=== PATIENT | male | born 1955 | race Caucasian/White ===

== ENCOUNTER 2018-11-10 14:24 | Outpatient (CLI) | payer OTHER ==
--- NOTE | 2018-11-10 15:18 | CT ---
LOW DOSE CT SCAN OF CHEST WITHOUT CONTRAST FOR LUNG CANCER SCREENING: Date: 11/10/18 HISTORY: Nicotine dependence. Current smoker with 30 year history of smoking about 1 pack per week. FINDINGS: There is a solid peripheral nodule in the right upper lobe measuring 8.0 x 8.0 mm. Also noted is a pe rifissural 4 mm nodule in the right lower lobe arising from the major fissure. There is scarring in the lung bases. No aneurysmal dilatation of the thoracic aorta is seen. There ar e degenerative changes in the spine. No pleural or pericardial effusions are identified. IMPRESSION: Lung-RADS Category 4A: Suspicious finding for which additional diagnostic testing is recommended. RECOMMENDATIONS; Further evaluation with PET scan is recommended. CODE T. CODE LN. POS: SHAINA
== END 2018-11-10 14:25 | disposition home or self-care (01) ==
LOC: CT 14:24
PROVIDERS: ATTEND Family Medicine
DX: Z12.2 Encounter for screening for malignant neoplasm of respiratory organs (principal); Z00.00 Encounter for general adult medical examination without abnormal findings; F17.210 Nicotine dependence, cigarettes, uncomplicated
CPT/HCPCS: G0297

== ENCOUNTER 2018-11-23 12:38 | Outpatient (CLI) | payer OTHER ==
--- NOTE | 2018-11-23 15:21 | PET ---
Radionucleotide PET scan with CT attenuation correction HISTORY: Lung nodule. FINDINGS: Physiologic uptake of radiotracer is apparent throughout the enteric system and along the u rinary tract. The small nodule seen at the lateral aspect of the right upper lobe on recent chest screening exam is again visualized. Maximum SUV 0.9. The tiny nodule within the right lower lobe hilum and pleural fissure is visualized. Maximum SUV 0.6. Overall, no areas of abnormal hypermetabolic activity are apparent. Nondiagnostic CT attenuation correction images show a healing fracture at the lateral margin of left rib the mid diverticula arise from the colon without adjacent inflammation. IMPRESSION: Small right lung nodules do not exhibit hypermetabolic activity. Please consider CT chest in 6 months to evaluate for stability. Diverticulosis. No evidence of diverticulitis.
== END 2018-11-23 12:39 | disposition home or self-care (01) ==
LOC: PET 12:38
PROVIDERS: ATTEND Family Medicine
DX: R91.8 Other nonspecific abnormal finding of lung field (principal); K57.90 Diverticulosis of intestine, part unspecified, without perforation or abscess without bleeding
CPT/HCPCS: 78815; A9552

== ENCOUNTER 2019-05-29 12:10 | Outpatient (CLI) | payer OTHER ==
--- NOTE | 2019-05-29 13:29 | CT ---
CT Chest WO Con History: Lung nodule Comparison: PET/CT November 23, 2018. CT chest November 10, 2018 Findings: 8 mm nodule right upper lobe is similar with faint internal calcifications. A perifissural nodule along the right major fissure measuring 4-5 mm is unchanged. No new suspicious pulmonary nodule. Mild paraseptal emphysema. Scar within the lingula is similar. Mild atelectasis in the lung bases. No significant adenopathy. No pericardial effusion. The upper abdomen is unremarkable. No thoracic spine compression fracture. No displaced rib fracture. Impression: 1. Size unchanged right upper lobe pulmonary nodule with faint internal calcification likely granulom a. 2. Size unchanged right perifissural nodule along the major fissure likely a perifissural node.
== END 2019-05-29 12:11 | disposition home or self-care (01) ==
LOC: BICCT 12:10
PROVIDERS: ATTEND Internal Medicine
DX: R91.8 Other nonspecific abnormal finding of lung field (principal); J98.4 Other disorders of lung
CPT/HCPCS: 71250

== ENCOUNTER 2019-12-31 13:07 | Outpatient (CLI) | payer OTHER ==
[~2019-12-31 13:07] MED LIST: Iopamidol-370 76% 500 ML 1 ML ONE
--- NOTE | 2019-12-31 15:45 | CT ---
Exam: Abdomen CT with and without contrast Pelvic CT with and without contrast HISTORY: Microscopic hematuria. COMPARISON: None TECHNIQUE: Abdomen and pelvic CT is performed with and without contrast following urogram protocol. C oronal reformatted images are submitted for interpretation FINDINGS: Lung bases: Scarring and atelectasis in the lung bases Heart: Normal heart size. No significant pericardial fluid Aorta: Normal caliber. No periaortic fat stranding Liver: Appropriate enhancement. Spleen: Appropriate enhancement Pancreas: Appropriate enhancement Adrenal glands: Symmetric enhancement Lymph nodes: No gastrohepatic, retrocrural or periportal lymphadenopathy Portal vein: Patent Gallbladder: Unremarkable Kidneys: Noncontrast: No evidence of nephrolithiasis or obstructive uropathy. Contrast: Symmetric enhancement of the kidneys. There is no evidence of an enhancing mass. Delayed: Symmetric excretion into decompressed intrauterine extra renal collecting systems. No abnorm al enhancement or filling defects. Mesentery: No mass, nephropathy, free air or free fluid Alimentary canal: Limited evaluation due to lack of oral contrast administration. No evidence of taylor l obstruction. The ileocecal junction is normal. Normal caliber appendix. Scattered fecal material in a nondistended/nondilated colon. Diverticulosis, without evidence of diverticulitis. CT PELVIS: Reproductive organs and pelvis: No acute abnormality. Normal-appearing prostate. Urinary bladder: No mucosal abnormality. No bladder calculi. Contrast opacifies the pending aspect of the urinary bladder on the delayed images, without filling defect. No lytic or blastic lesions in the osseous structures IMPRESSION: 1. No obstructive uropathy. 2. No abnormal enhancing masses kidneys or the intrarenal/extrarenal system.
== END 2019-12-31 13:08 | disposition home or self-care (01) ==
LOC: BICCT 13:07
PROVIDERS: ATTEND Urology
DX: R31.29 Other microscopic hematuria (principal); F17.200 Nicotine dependence, unspecified, uncomplicated
CPT/HCPCS: 74178; 82565; Q9967

== ENCOUNTER 2020-08-26 15:10 | Inpatient (IN) | payer OTHER ==
[~2020-08-26 15:10] MED LIST changes: +Iopamidol 370 76% 100 ML VIAL ONE; -Iopamidol-370 76% 500 ML 1 ML ONE
[2020-08-26 15:56] LABS: #Eosinphils 0.2 thou/uL (0.0-0.7); #Lymphocytes 2.8 thou/uL (1.20-3.40); #Monocytes 0.9 thou/uL (0.11-0.59); #Neutrophils 5.5 thou/uL (1.40-6.50); %Basophils 0.5 % (0.0-1.0); %Eosinophils 2.5 % (0.0-10.0); %Lymphocytes 29.4 % (21.0-51.0); %Monocytes 9.7 % (0.0-10.0); Hemoglobin 14.4 g/dL (14.0-18.0); Mean Corpuscular HGB CONC 32.8 g/dL (32.0-36.0); Mean Corpuscular Hemoglobin 30.7 pg (27.0-31.0); Mean Corpuscular Volume 93.7 fL (78.0-98.0); Mean Platelet Volume 6.8 fL (7.4-10.4); Platelet Count 181 thou/uL (130-400); RBC Distribution Width 11.6 % (11.5-14.5); Red Blood Cell (RBC) Count 4.69 mill/uL (4.70-6.10); White Blood Cell (WBC) Count 9.5 thou/uL (4.8-10.8)
[2020-08-26] MEDS ORDERED: Aspirin Chewable 81 MG TAB ONE (15:57)
[2020-08-26 16:17] LABS: ALT (SGPT) 17 U/L (8-55); AST (SGOT) 29 U/L (5-34); Alkaline Phosphatase 85 U/L (40-110); Anion Gap 15 mmol/L (10-20); BUN (Urea Nitrogen) 15 mg/dL (8.4-25.7); Bilirubin, Total 0.3 mg/dL (0.2-1.2); Calc. Creatinine Clearance 0 mL/min (70-130); Calcium 8.8 mg/dL (7.8-10.44); Carbon Dioxide 21 mmol/L (23-31); Chloride 108 mmol/L (98-107); Glucose 95 mg/dL (80-115); Potassium 3.8 mmol/L (3.5-5.1); Sodium 140 mmol/L (136-145)
[2020-08-26] MEDS ORDERED: Nitroglycerin 0.4 MG TAB 1 EACH ONE (16:34)
[2020-08-26] MEDS ORDERED: Morphine 2 MG/ML VIAL SLOW IVP PRN (18:30)
[2020-08-26] MEDS ORDERED: Nitroglycerin 0.4 MG TAB (25 Tab Bottle) SL PRN ×2 (18:30→21:34)
[2020-08-26] MEDS ORDERED: Acetaminophen 650 MG Suppository PR PRN (18:33)
[2020-08-26] MEDS ORDERED: Ondansetron ODT 4 MG TAB PO PRN (18:33)
[2020-08-26] MEDS ORDERED: Senokot S 8.6-50 MG TAB PO PRN (18:33)
[2020-08-26] MEDS ORDERED: Ondansetron PF 4 MG/2 ML Vial IVP PRN (18:33)
[2020-08-26] MEDS ORDERED: Calcium Carbonate 500 MG ChewTAB PO PRN ×2 (18:33→18:55)
[2020-08-26] MEDS ORDERED: Acetaminophen 325 MG TAB PO PRN (18:33)
[2020-08-26] MEDS ORDERED: Electrolyte Replacement Protocol FS PRN (18:45)
[2020-08-26] MEDS ORDERED: Electrolyte Replacement Protocol 1 EACH FS SCH (18:45)
[2020-08-26] MEDS ORDERED: Sodium Chloride 0.9% 1,000 ML IV SCH ×2 (18:45→18:55)
[2020-08-26] MEDS ORDERED: Mag-Al 1200 mg/1200 mg/30 ML UDCUP PO PRN (18:55)
[2020-08-26] MEDS ORDERED: ALPRAZolam 0.25 MG TAB PO PRN (18:59)
[2020-08-26] MEDS ORDERED: Nitroglycerin 50 MG/250 ML BOT 250 ML IVPB SCH (19:00)
[2020-08-26] MEDS ORDERED: Nitroglycerin 2% Ointment 1 INCH/1 GM Packet TOP SCH (19:30)
[2020-08-26] MEDS ORDERED: Communication Order-Pharmacy FS SCH (19:45)
[2020-08-26] MEDS ORDERED: Verapamil 5 MG/2 ML VIAL ONE (20:24)
[2020-08-26] MEDS ORDERED: Nitroglycerin 100MG/250ML BOT 250 ML ONE (20:24)
[2020-08-26] MEDS ORDERED: Heparin 10,000 UNITS/ 10 ML VIAL ONE (20:24)
[2020-08-26] MEDS ORDERED: Lidocaine 1% (PF) 30 ML VIAL ONE (20:24)
[2020-08-26] MEDS ORDERED: Atorvastatin Calcium 40 MG TAB PO SCH (21:00)
[2020-08-26] MEDS ORDERED: Famotidine 20 MG TAB PO SCH (21:00)
[2020-08-26] MEDS ORDERED: Sodium Chloride 0.9% 200 ML IV PRN (21:34)
[2020-08-26] MEDS ORDERED: Acetaminophen/Codeine 30-300mg Tablet PO PRN ×2 (21:34)
[2020-08-26 21:44] LABS: SARS-CoV-2 NAA Rapid Test Not Detected (NotDetected)
[2020-08-26] MEDS: Metoprolol Tartrate 25 MG TAB PO SCH (22:39)
[2020-08-26] MEDS ORDERED: Magnesium 2 GM/50 ML 2 GM in Premix Bag 1 BAG IVPB SCH (22:45)
[2020-08-27 03:43] LABS: #Basophils 0.1 thou/uL (0.0-0.2); #Eosinphils 0.3 thou/uL (0.0-0.7); #Lymphocytes 3.4 thou/uL (1.20-3.40); #Neutrophils 5.8 thou/uL (1.40-6.50); %Basophils 0.9 % (0.0-1.0); %Eosinophils 2.7 % (0.0-10.0); %Lymphocytes 32.2 % (21.0-51.0); %Monocytes 9.2 % (0.0-10.0); %Neutrophils 55.1 % (42.0-75.0); Hemoglobin 14.5 g/dL (14.0-18.0); Mean Corpuscular HGB CONC 34.4 g/dL (32.0-36.0); Mean Corpuscular Hemoglobin 32.1 pg (27.0-31.0); Mean Corpuscular Volume 93.4 fL (78.0-98.0); Platelet Count 158 thou/uL (130-400); RBC Distribution Width 11.4 % (11.5-14.5); Red Blood Cell (RBC) Count 4.52 mill/uL (4.70-6.10); White Blood Cell (WBC) Count 10.5 thou/uL (4.8-10.8)
[2020-08-27 04:11] LABS: ALT (SGPT) 18 U/L (8-55); AST (SGOT) 38 U/L (5-34); Albumin 3.7 g/dL (3.4-4.8); Alkaline Phosphatase 74 U/L (40-110); Anion Gap 13 mmol/L (10-20); BUN (Urea Nitrogen) 12 mg/dL (8.4-25.7); Bilirubin, Total 0.4 mg/dL (0.2-1.2); Calc. Creatinine Clearance 134 mL/min (70-130); Calcium 8.4 mg/dL (7.8-10.44); Carbon Dioxide 22 mmol/L (23-31); Cardiac Risk 4.5 (Less than 4.5); Chloride 108 mmol/L (98-107); Cholesterol 178 mg/dl (< 200 Desired); Globulin 2.7 g/dL (2.4-3.5); Glucose 98 mg/dL (80-115); HDL Cholesterol 40 mg/dL (>60 Neg Risk); LDL Cholesterol, Calculated 115 mg/dL; Potassium 4.1 mmol/L (3.5-5.1); Protein, Total 6.4 g/dL (5.8-8.1); Sodium 139 mmol/L (136-145); Triglycerides 116 mg/dL (Less than 150)
[2020-08-27 04:40] LABS: CKMB 27.1 ng/mL (0-6.6)
[2020-08-27] MEDS ORDERED: Communication Order-Pharmacy FS ONE ×2 (06:14→06:15)
[2020-08-27] MEDS: Metoprolol Tartrate 25 MG TAB PO SCH (07:32)
[2020-08-27] MEDS ORDERED: EPINEPHrine 1 MG/ML AMP ONE (07:41)
[2020-08-27] MEDS ORDERED: Bupivacaine PF 0.5% 30 ML VIAL ONE (07:41)
[2020-08-27] MEDS ORDERED: Albumin 5% 500 ML ONE (07:41)
[2020-08-27] MEDS ORDERED: Dexamethasone 4 mg/ml Vial ONE (07:41)
[2020-08-27] MEDS ORDERED: Heparin 10,000 UNITS/1 ML VIAL 30,000 UNITS in Sodium Chloride 0.9% 1,000 ML FS SCH (08:30)
[2020-08-27 08:45] VITALS: BMI 27.6
[2020-08-27] MEDS ORDERED: Aspirin 325 mg Enteric Coated Tablet PO SCH (09:00)
[2020-08-27] MEDS ORDERED: Midazolam HCl 2 mg/2 ml Vial IVP SCH (09:25)
[2020-08-27] MEDS ORDERED: CEFAZOLIN 2 GM in Premix Bag 1 BAG IVPB SCH (09:30)
[2020-08-27] MEDS ORDERED: Heparin 5,000 UNITS/ML VIAL ONE (09:33)
[2020-08-27] MEDS ORDERED: Papaverine 60 MG/2 ML VIAL ONE (09:33)
[2020-08-27] MEDS ORDERED: Vecuronium 10 MG VIAL ONE (09:33)
[2020-08-27] MEDS ORDERED: Potassium Chloride 60 MEQ/30 ML VIAL ONE (09:33)
[2020-08-27] MEDS ORDERED: Ondansetron PF 4 MG/2 ML Vial ONE (09:33)
[2020-08-27] MEDS ORDERED: PROPOFOL 200 MG/20 ML VIAL ONE (09:33)
[2020-08-27] MEDS ORDERED: Protamine Sulfate 250 MG/25 ML VIAL ONE (09:33)
[2020-08-27] MEDS ORDERED: Lidocaine 1% PF 5 ML VIAL ONE (09:33)
[2020-08-27] MEDS ORDERED: Norepinephrine 4 MG/4 ML VIAL ONE (09:33)
[2020-08-27] MEDS ORDERED: Calcium Chloride 1 GM/10 ML Abboject SYRINGE ONE (09:33)
[2020-08-27] MEDS ORDERED: Aminocaproic Acid 5 GM/20 ML VIAL ONE (09:33)
[2020-08-27] MEDS ORDERED: Sodium Bicarb 50 MEQ/50 ML Abboject 8.4% SYRINGE ONE (09:33)
[2020-08-27] MEDS ORDERED: Mannitol 12.5 GM/50 ML ONE (09:33)
[2020-08-27] MEDS ORDERED: Magnesium Sulfate 1 GM/2 ML VIAL ONE (09:33)
[2020-08-27] MEDS ORDERED: Lidocaine 2% PF 100 mg/5 ml Syringe ONE (09:33)
[2020-08-27] MEDS ORDERED: Cardioplegic Soln 1,000 ML BAG ONE (09:33)
[2020-08-27] MEDS ORDERED: Rocuronium Bromide 10 MG/ML (10ML VIAL) ONE (09:33)
[2020-08-27] MEDS ORDERED: Thrombin 5000 UNITS/5 ML VIAL ONE (09:33)
[2020-08-27] MEDS ORDERED: Heparin 30,000 units/30 ml VIAL ONE (09:33)
[2020-08-27] MEDS ORDERED: Midazolam HCl 2 mg/2 ml Vial ONE (10:07)
[2020-08-27] MEDS ORDERED: Fentanyl 250 MCG/5 ML VIAL ONE (10:22)
[2020-08-27] MEDS ORDERED: Midazolam HCl 5 mg/5 ml Vial ONE (10:23)
[2020-08-27] MEDS ORDERED: Nitroglycerin 50 MG/250 ML BOT 0 ML ONE (11:34)
[2020-08-27] MEDS ORDERED: PHENYLEPHRINE-NS 100 MCG/ML 10 ML SYRINGE ONE (11:59)
[2020-08-27] MEDS ORDERED: Insulin Regular 300 UNITS/3 ML VIAL ONE (12:16)
[2020-08-27 14:29] LABS: Actual Bicarbonate (HCO3a) 23.3 mEq/L (22-28); Base Excess (BEa) -2.2 mEq/L (-2.0 to +3.0); CO2 Tension 42.4 mmHg (35.0-45.0); Carboxyhemoglobin (COHb) 0.7 gm% (0.0-3.0); Hemoglobin (Hb) 13.4 g/dL (14.0-18.0); O2 Tension (PaO2), arterial 71.3 mmHg (> 80.0); Potassium - ABG Lab 4.03 mmol/L (3.70-5.30); pH, Arterial 7.36 (7.35-7.45)
[2020-08-27 14:31] LABS: Puncture Site Arterial Line
[2020-08-27] MEDS ORDERED: Morphine 4 MG/ML VIAL ONE (14:32)
[2020-08-27] MEDS ORDERED: Nitroglycerin 50 MG/250 ML BOT 250 ML ONE (14:36)
[2020-08-27] MEDS ORDERED: Bisacodyl 5 MG TAB PO PRN (15:12)
[2020-08-27] MEDS ORDERED: Morphine 2 MG/ML VIAL SLOW IVP PRN (15:12)
[2020-08-27] MEDS ORDERED: D5 1/2 NS w/20 mEq KCL 1,000 ML IV SCH (15:12)
[2020-08-27] MEDS ORDERED: hydrALAZINE 20 MG/ML VIAL SLOW IVP PRN (15:12)
[2020-08-27] MEDS ORDERED: Mag-Al 1200 mg/1200 mg/30 ML UDCUP PO PRN (15:12)
[2020-08-27] MEDS ORDERED: Bisacodyl 10 MG SUPP PR PRN (15:12)
[2020-08-27] MEDS ORDERED: Norepinephrine 8 MG/0.9% NS 250 ML IVPB PRN (15:12)
[2020-08-27] MEDS ORDERED: Post-Op Insulin Drip Protocol IVPB ONE (15:12)
[2020-08-27] MEDS ORDERED: Potassium Chloride 20 MEQ/100 ML PREMIX BAG IVPB PRN (15:12)
[2020-08-27] MEDS ORDERED: Ondansetron PF 4 MG/2 ML Vial IVP PRN (15:12)
[2020-08-27] MEDS ORDERED: Fentanyl 100 MCG/2 ML VIAL SLOW IVP PRN ×2 (15:12)
[2020-08-27] MEDS ORDERED: Nitroglycerin 50 MG/250 ML BOT 250 ML IVPB PRN (15:12)
[2020-08-27] MEDS ORDERED: Hetastarch 6% 500 ML 500 ML IVPB PRN (15:12)
[2020-08-27] MEDS ORDERED: traMADol HCl 50 MG TAB PO PRN ×2 (15:12)
[2020-08-27] MEDS ORDERED: Guaifenesin DM 100-10/5 ML UDCUP PO PRN (15:12)
[2020-08-27] MEDS ORDERED: Acetaminophen 325 MG TAB PO PRN (15:12)
[2020-08-27 15:20] LABS: #Eosinphils 0.1 thou/uL (0.0-0.7); #Monocytes 1.2 thou/uL (0.11-0.59); #Neutrophils 14.3 thou/uL (1.40-6.50); %Basophils 0.2 % (0.0-1.0); %Eosinophils 0.7 % (0.0-10.0); %Lymphocytes 11.6 % (21.0-51.0); %Monocytes 6.6 % (0.0-10.0); Hemoglobin 12.9 g/dL (14.0-18.0); Mean Corpuscular HGB CONC 33.2 g/dL (32.0-36.0); Mean Corpuscular Hemoglobin 31.2 pg (27.0-31.0); Mean Platelet Volume 6.9 fL (7.4-10.4); Platelet Count 164 thou/uL (130-400); RBC Distribution Width 11.5 % (11.5-14.5); Red Blood Cell (RBC) Count 4.12 mill/uL (4.70-6.10); White Blood Cell (WBC) Count 17.7 thou/uL (4.8-10.8)
[2020-08-27 15:26] LABS: INR-International Normal Ratio 1.1; PTT 31.4 sec (22.9-36.1); Prothrombin Time 14.6 sec (12.0-14.7)
[2020-08-27 15:28] LABS: Anion Gap 12 mmol/L (10-20); BUN (Urea Nitrogen) 12 mg/dL (8.4-25.7); Calc. Creatinine Clearance 118 mL/min (70-130); Calcium 8.5 mg/dL (7.8-10.44); Carbon Dioxide 23 mmol/L (23-31); Chloride 110 mmol/L (98-107); Glucose 137 mg/dL (80-115); Potassium 4.1 mmol/L (3.5-5.1); Sodium 141 mmol/L (136-145)
[2020-08-27] MEDS ORDERED: Dextrose 50% Abboject 50 ML SYRINGE SLOW IVP PRN (15:30)
[2020-08-27] MEDS ORDERED: Magnesium 2 GM/50 ML 2 GM in Premix Bag 1 BAG IVPB SCH (15:30)
[2020-08-27] MEDS ORDERED: Insulin Regular 300 UNITS/3 ML VIAL SC PRN (15:30)
[2020-08-27] MEDS ORDERED: HUMULIN R 100 UNITS in Sodium Chloride 0.9% 100 ML IVPB SCH (15:30)
[2020-08-27] MEDS ORDERED: Dextrose 5% in Water 1,000 ML IV PRN (15:30)
[2020-08-27] MEDS: Ketorolac Tromethamine 30 MG/ML VIAL IVP SCH (18:26)
[2020-08-27] MEDS: CEFAZOLIN 2 GM in Premix Bag 1 BAG IVPB SCH (18:26)
[2020-08-27 20:05] LABS: Hemoglobin 12.6 g/dL (14.0-18.0)
[2020-08-27 20:14] LABS: Base Excess (BEa) -1.9 mEq/L (-2.0 to +3.0); CO2 Tension 34.7 mmHg (35.0-45.0); Calcium, Ionized (arterial) 1.11 mmol/L (1.12-1.30); Carboxyhemoglobin (COHb) 0.4 gm% (0.0-3.0); O2 Tension (PaO2), arterial 79.3 mmHg (> 80.0); Potassium - ABG Lab 4.28 mmol/L (3.70-5.30); pH, Arterial 7.42 (7.35-7.45)
[2020-08-27 20:19] LABS: Potassium 4.3 mmol/L (3.5-5.1)
[2020-08-27 20:40] LABS: ALV-art Gradient 126.875 mmHg (0-20); Puncture Site Arterial Line
[2020-08-27] MEDS ORDERED: Famotidine/PF 20 mg/2ml Vial SLOW IVP SCH (21:00)
[2020-08-27] MEDS ORDERED: Atorvastatin Calcium 20 MG TAB PO SCH (21:00)
[2020-08-28] MEDS: Ketorolac Tromethamine 30 MG/ML VIAL IVP SCH ×4 (00:22→17:41)
[2020-08-28] MEDS: CEFAZOLIN 2 GM in Premix Bag 1 BAG IVPB SCH (02:15)
[2020-08-28 05:24] LABS: Anion Gap 11 mmol/L (10-20); BUN (Urea Nitrogen) 16 mg/dL (8.4-25.7); Calc. Creatinine Clearance 116 mL/min (70-130); Calcium 7.8 mg/dL (7.8-10.44); Carbon Dioxide 23 mmol/L (23-31); Chloride 111 mmol/L (98-107); Glucose 109 mg/dL (80-115); Potassium 4.2 mmol/L (3.5-5.1); Sodium 141 mmol/L (136-145)
[2020-08-28 06:02] LABS: #Lymphocytes 1.3 thou/uL (1.20-3.40); #Monocytes 1.2 thou/uL (0.11-0.59); #Neutrophils 10.1 thou/uL (1.40-6.50); %Basophils 0.2 % (0.0-1.0); %Eosinophils 0.1 % (0.0-10.0); %Lymphocytes 9.9 % (21.0-51.0); %Monocytes 9.7 % (0.0-10.0); %Neutrophils 80.1 % (42.0-75.0); Hemoglobin 11.6 g/dL (14.0-18.0); Mean Corpuscular HGB CONC 33.1 g/dL (32.0-36.0); Mean Corpuscular Hemoglobin 31.3 pg (27.0-31.0); Mean Corpuscular Volume 94.8 fL (78.0-98.0); Mean Platelet Volume 7.4 fL (7.4-10.4); Platelet Count 119 thou/uL (130-400); Platelet Morphology Comment Appears Decreased; RBC Distribution Width 11.6 % (11.5-14.5); Red Blood Cell (RBC) Count 3.69 mill/uL (4.70-6.10); White Blood Cell (WBC) Count 12.6 thou/uL (4.8-10.8)
[2020-08-28] MEDS ORDERED: Guaifenesin DM 100-10/5 ML UDCUP PO PRN (08:06)
[2020-08-28] MEDS ORDERED: traMADol HCl 50 MG TAB PO PRN ×2 (08:06)
[2020-08-28] MEDS ORDERED: Bisacodyl 5 MG TAB PO PRN (08:06)
[2020-08-28] MEDS ORDERED: diphenhydrAMINE 25 MG CAP PO PRN (08:06)
[2020-08-28] MEDS ORDERED: Zolpidem Tartrate 5 MG TAB PO PRN (08:06)
[2020-08-28] MEDS ORDERED: Milk Of Magnesia 30 ML UDCUP PO PRN (08:06)
[2020-08-28] MEDS ORDERED: Mag-Al 1200 mg/1200 mg/30 ML UDCUP PO PRN (08:06)
[2020-08-28] MEDS ORDERED: Mineral Oil ENEMA PR PRN (08:06)
[2020-08-28] MEDS ORDERED: Fentanyl 100 MCG/2 ML VIAL SLOW IVP PRN (08:06)
[2020-08-28] MEDS ORDERED: Bisacodyl 10 MG SUPP PR PRN (08:06)
[2020-08-28] MEDS ORDERED: Ondansetron PF 4 MG/2 ML Vial IVP PRN (08:06)
[2020-08-28] MEDS ORDERED: Nitroglycerin 0.4 MG TAB (25 Tab Bottle) SL PRN (08:06)
[2020-08-28] MEDS ORDERED: Potassium Chloride 10 MEQ TAB PO SCH (08:15)
[2020-08-28] MEDS ORDERED: Aspirin Chewable 81 MG TAB PO SCH (09:00)
[2020-08-28] MEDS ORDERED: Magnesium 2 GM/50 ML 2 GM in Premix Bag 1 BAG IVPB SCH (09:00)
[2020-08-28] MEDS: Magnesium 2 GM/50 ML 2 GM in Premix Bag 1 BAG IVPB SCH ×2 (09:31→14:03)
[2020-08-28] MEDS: Famotidine 20 MG TAB PO SCH ×2 (09:34→20:37)
[2020-08-28] MEDS: Clopidogrel Bisulfate 75 MG TAB PO SCH (09:34)
[2020-08-28] MEDS: Aspirin 81 mg Enteric Coated Tablet PO SCH (09:34)
[2020-08-28] MEDS: Furosemide 40 MG TAB PO SCH (09:35)
[2020-08-28] MEDS ORDERED: Magnesium 2 GM/50 ML BAG (IN WATER) ONE (13:57)
[2020-08-28] MEDS: Atorvastatin Calcium 40 MG TAB PO SCH (20:38)
[2020-08-29] MEDS: Ketorolac Tromethamine 30 MG/ML VIAL IVP SCH ×4 (00:18→17:02)
[2020-08-29] MEDS: Potassium Chloride 10 MEQ TAB PO SCH (08:17)
[2020-08-29] MEDS: Clopidogrel Bisulfate 75 MG TAB PO SCH (08:17)
[2020-08-29] MEDS: Famotidine 20 MG TAB PO SCH ×2 (08:17→20:45)
[2020-08-29] MEDS: Furosemide 40 MG TAB PO SCH (08:18)
[2020-08-29] MEDS: Aspirin 81 mg Enteric Coated Tablet PO SCH (08:18)
[2020-08-29] MEDS: Magnesium 2 GM/50 ML 2 GM in Premix Bag 1 BAG IVPB SCH (08:18)
[2020-08-29] MEDS: Metoprolol Tartrate 25 MG TAB PO SCH (20:45)
[2020-08-29] MEDS: Atorvastatin Calcium 40 MG TAB PO SCH (20:45)
[2020-08-30] MEDS: Ketorolac Tromethamine 30 MG/ML VIAL IVP SCH ×2 (00:45→05:30)
[2020-08-30] MEDS: Magnesium 2 GM/50 ML 2 GM in Premix Bag 1 BAG IVPB SCH (07:43)
[2020-08-30] MEDS: Aspirin 81 mg Enteric Coated Tablet PO SCH (08:39)
[2020-08-30] MEDS: Metoprolol Tartrate 25 MG TAB PO SCH (08:39)
[2020-08-30] MEDS: Furosemide 40 MG TAB PO SCH (08:39)
[2020-08-30] MEDS: Potassium Chloride 10 MEQ TAB PO SCH (08:39)
[2020-08-30] MEDS: Clopidogrel Bisulfate 75 MG TAB PO SCH (08:39)
[2020-08-30] MEDS: Famotidine 20 MG TAB PO SCH (08:39)
[2020-08-30 11:51] VITALS: BP 129/82; TEMP 97.9
== END 2020-08-30 13:30 | disposition home or self-care (01) | DRG 234 ==
LOC: ERS 15:10 → CCL 20:18 → CCU 21:24 → 2NO 08-28 14:50
PROVIDERS: ADMIT Internal Medicine; ATTEND Hospitalist
PROC: B2111ZZ Fluoroscopy of Multiple Coronary Arteries using Low Osmolar Contrast (ICD-10-PCS; 2020-08-26)
PROC: B2151ZZ Fluoroscopy of Left Heart using Low Osmolar Contrast (ICD-10-PCS; 2020-08-26)
PROC: 4A023N7 Measurement of Cardiac Sampling and Pressure, Left Heart, Percutaneous Approach (ICD-10-PCS; 2020-08-26)
PROC: 02100Z9 Bypass Coronary Artery, One Artery from Left Internal Mammary, Open Approach (ICD-10-PCS; principal; 2020-08-27)
PROC: 021209W Bypass Coronary Artery, Three Arteries from Aorta with Autologous Venous Tissue, Open Approach (ICD-10-PCS; 2020-08-27)
PROC: 06BQ4ZZ Excision of Left Saphenous Vein, Percutaneous Endoscopic Approach (ICD-10-PCS; 2020-08-27)
PROC: 5A1221Z Performance of Cardiac Output, Continuous (ICD-10-PCS; 2020-08-27)
DX: I21.4 Non-ST elevation (NSTEMI) myocardial infarction (principal); I25.10 Atherosclerotic heart disease of native coronary artery without angina pectoris; F17.210 Nicotine dependence, cigarettes, uncomplicated; R91.1 Solitary pulmonary nodule; D69.6 Thrombocytopenia, unspecified; M19.90 Unspecified osteoarthritis, unspecified site; I25.110 Atherosclerotic heart disease of native coronary artery with unstable angina pectoris; I10 Essential (primary) hypertension; Z20.822 Contact with and (suspected) exposure to COVID-19; F41.9 Anxiety disorder, unspecified; N40.0 Benign prostatic hyperplasia without lower urinary tract symptoms; Z79.899 Other long term (current) drug therapy; Z98.890 Other specified postprocedural states; Z82.49 Family history of ischemic heart disease and other diseases of the circulatory system; E78.2 Mixed hyperlipidemia
CPT/HCPCS: 36415; 36416; 36430; 71045; 80048; 80053; 80061; 82553; 82805; 83735; 83880; 84484; 85025; 85610; 85730; 86850; 86900; 86901; 93005; 93010; 93306; 93458; 93798; 94002; 94150; 96372; 97139; J0171; J0690; J1100; J1644; J1815; J1885; J2001; J2150; J2250; J2270; J2405; J2440; J2704; J2720; J3010; J3370; J3475; J3480; J3490; J7620; P9045; Q9967; S0017; S0020; S0028; U0002

== ENCOUNTER 2020-10-09 13:18 | Outpatient (CLI) | payer OTHER ==
[2020-10-09 14:13] LABS: #Eosinphils 0.3 10x3/uL (0.0-0.5); #Monocytes 0.7 10x3/uL (0.0-1.1); #Neutrophils 3.6 10x3/uL (1.5-8.4); %Basophils 0.6 % (0.0-2.0); %Eosinophils 4.1 % (0.0-6.0); Hemoglobin 14.1 g/dL (13.5-17.5); Mean Corpuscular HGB CONC 33.2 g/dL (32.0-36.0); Mean Corpuscular Hemoglobin 30.1 pg (27.0-33.0); Mean Corpuscular Volume 90.6 fl (81.2-95.1); Mean Platelet Volume 9.3 fl (7.4-10.4); Platelet Count 171 10x3/uL (150-450); RBC Distribution Width 12.3 % (11.5-14.5); Red Blood Cell (RBC) Count 4.69 10x6/uL (4.32-5.72); White Blood Cell (WBC) Count 7.2 10x3/uL (3.5-10.5)
[2020-10-09 14:27] LABS: Anion Gap 12 mmol/L (10-20); BUN (Urea Nitrogen) 14 mg/dL (8.4-25.7); Calc. Creatinine Clearance 0 mL/min (70-130); Carbon Dioxide 27 mmol/L (23-31); Chloride 105 mmol/L (98-107); Glucose 88 mg/dL (80-115); Potassium 4.8 mmol/L (3.5-5.1); Sodium 139 mmol/L (136-145)
[2020-10-10 11:37] LABS: SARS-CoV-2 PCR by NAA Not Detected (NotDetected)
== END 2020-10-09 13:19 | disposition home or self-care (01) ==
LOC: LABBT 13:18
PROVIDERS: ATTEND Surgery
DX: Z01.818 Encounter for other preprocedural examination (principal); K40.91 Unilateral inguinal hernia, without obstruction or gangrene, recurrent; R91.1 Solitary pulmonary nodule; R94.31 Abnormal electrocardiogram [ECG] [EKG]; Z20.822 Contact with and (suspected) exposure to COVID-19
CPT/HCPCS: 71046; 80048; 85025; 87635; 93005; 93010; 93798; U0003; U0005

== ENCOUNTER 2020-10-14 10:14 | Day surgery (SDC) | payer OTHER ==
[2020-10-13 11:59] VITALS: BMI 27.6
[2020-10-14] MEDS ORDERED: Acetaminophen 500 MG TAB ONE (10:46)
[2020-10-14] MEDS ORDERED: Ketorolac Tromethamine 30 MG/ML VIAL ONE (10:46)
[2020-10-14] MEDS ORDERED: Lidocaine 1% w/Epinephrine 1:100K 20 ML VIAL ONE (11:41)
[2020-10-14] MEDS ORDERED: Bupivacaine 0.25% HCL 30 ML VIAL ONE (11:41)
[2020-10-14] MEDS ORDERED: Midazolam HCl 2 mg/2 ml Vial ONE (11:50)
[2020-10-14] MEDS ORDERED: Fentanyl 100 MCG/2 ML VIAL ONE (11:50)
[2020-10-14] MEDS ORDERED: PROPOFOL 200 MG/20 ML VIAL ONE (11:57)
[2020-10-14] MEDS ORDERED: Ondansetron PF 4 MG/2 ML Vial ONE (11:57)
[2020-10-14] MEDS ORDERED: Dexamethasone 20 MG/5 ML VIAL ONE (11:57)
[2020-10-14] MEDS ORDERED: Lidocaine 1% PF 5 ML VIAL ONE (11:57)
[2020-10-14] MEDS ORDERED: ePHEDrine Sulfate 50 MG/10 ML VIAL ONE (11:57)
[2020-10-14] MEDS ORDERED: Bupivacaine PF 0.5% 30 ML VIAL ONE (12:16)
[2020-10-14] MEDS ORDERED: Albuterol Sulfate HFA (OR ONLY) ONE (12:48)
== END 2020-10-14 16:00 | disposition home or self-care (01) ==
LOC: SDC 10:14
PROVIDERS: ATTEND Surgery
PROC: 0YU60JZ Supplement Left Inguinal Region with Synthetic Substitute, Open Approach (ICD-10-PCS; principal; 2020-10-14)
DX: K40.91 Unilateral inguinal hernia, without obstruction or gangrene, recurrent (principal); D17.6 Benign lipomatous neoplasm of spermatic cord; N40.0 Benign prostatic hyperplasia without lower urinary tract symptoms; M19.90 Unspecified osteoarthritis, unspecified site; E78.5 Hyperlipidemia, unspecified; I25.2 Old myocardial infarction; F17.210 Nicotine dependence, cigarettes, uncomplicated; Z79.02 Long term (current) use of antithrombotics/antiplatelets; Z79.82 Long term (current) use of aspirin; Z79.899 Other long term (current) drug therapy; Z88.8 Allergy status to other drugs, medicaments and biological substances; Z95.1 Presence of aortocoronary bypass graft
CPT/HCPCS: 88302; 88304; A4306; C1781; J0690; J1100; J1885; J2250; J2405; J2704; J3010; S0020

== ENCOUNTER 2020-12-05 16:00 | Outpatient (CLI) | payer OTHER | END 2020-12-05 16:01 | disposition home or self-care (01) | LOC: SLEEPLAB 16:00 | PROVIDERS: ATTEND Internal Medicine Critical Care Medicine | DX: G47.33 Obstructive sleep apnea (adult) (pediatric) (principal); R06.83 Snoring; G47.00 Insomnia, unspecified | CPT/HCPCS: 95806 ==

== ENCOUNTER 2022-10-05 09:32 | Outpatient (CLI) | payer OTHER | END 2022-10-05 09:33 | disposition home or self-care (01) | LOC: RAD 09:32 | PROVIDERS: ATTEND Internal Medicine Critical Care Medicine | DX: R06.00 Dyspnea, unspecified (principal) | CPT/HCPCS: 71046 ==

== ENCOUNTER 2023-08-11 08:55 | Outpatient (CLI) | payer BC ==
[2023-08-11] MEDS ORDERED: Iopamidol 370 76% 100 ML VIAL ONE (13:29)
== END 2023-08-11 08:56 | disposition home or self-care (01) ==
LOC: CT 08:55
PROVIDERS: ATTEND Surgery
DX: R10.30 Lower abdominal pain, unspecified (principal); K42.9 Umbilical hernia without obstruction or gangrene; K57.30 Diverticulosis of large intestine without perforation or abscess without bleeding; M47.816 Spondylosis without myelopathy or radiculopathy, lumbar region; I70.90 Unspecified atherosclerosis
CPT/HCPCS: 72193; 82565; Q9967

== ENCOUNTER 2024-06-05 05:49 | Day surgery (SDC) | payer BC ==
[2024-06-04 11:42] VITALS: BMI 27.8
[2024-06-05] MEDS ORDERED: PROPOFOL 20 ML ONE (06:31)
[2024-06-05] MEDS ORDERED: Midazolam HCl 2 mg/2 ml Vial ONE (06:31)
[2024-06-05] MEDS ORDERED: Ondansetron PF 4 MG/2 ML Vial ONE (06:31)
[2024-06-05] MEDS ORDERED: Lidocaine 1% PF 5 ML VIAL ONE (06:31)
[2024-06-05] MEDS ORDERED: Rocuronium Bromide 10 MG/ML (10ML VIAL) ONE (06:31)
[2024-06-05] MEDS ORDERED: fentaNYL PF 100 MCG/2 ML SYRINGE ONE (06:31)
[2024-06-05] MEDS ORDERED: SUGAMMADEX SODIUM 200 MG/2 ML VIAL ONE (06:31)
[2024-06-05] MEDS ORDERED: Lidocaine 4% Topical Sol 50 ML BOT ONE (06:37)
[2024-06-05] MEDS ORDERED: EPINEPHrine 1 MG/ML VIAL ONE (06:46)
[2024-06-05] MEDS ORDERED: Thrombin 5000 UNITS/5 ML VIAL ONE (06:47)
[2024-06-05] MEDS ORDERED: Bupivacaine PF 0.5% 30 ML VIAL ONE (06:47)
[2024-06-05] MEDS ORDERED: CEFAZOLIN 2 GM VIAL ONE ×2 (06:50→10:25)
[2024-06-05 07:23] LABS: Anion Gap 14 mmol/L (10-20); BUN (Urea Nitrogen) 21 mg/dL (8.4-25.7); Calc. Creatinine Clearance 88 mL/min (70-130); Calcium 9.6 mg/dL (7.8-10.44); Carbon Dioxide 23 mmol/L (23-31); Chloride 107 mmol/L (98-107); Estimated GFR 77; Glucose 87 mg/dL (80-115); Potassium 3.9 mmol/L (3.5-5.1); Sodium 140 mmol/L (136-145)
[2024-06-05] MEDS ORDERED: PHENYLEPHRINE-NS 100 MCG/ML 10 ML SYRINGE ONE (07:23)
[2024-06-05] MEDS ORDERED: ePHEDrine Sulfate 50 MG/10 ML VIAL ONE (07:26)
[2024-06-05 07:31] LABS: #Basophils 0.06 10x3/uL (0.0-0.2); %Basophils 0.6 % (0.0-1.0); %Eosinophils 2.1 % (0.0-10.0); %Lymphocytes 32.4 % (21.0-51.0); %Monocytes 9.7 % (0.0-10.0); Hematocrit 44.9 % (42.0-52.0); Hemoglobin 15.1 g/dL (14.0-18.0); Mean Corpuscular HGB CONC 33.6 g/dL (32.0-36.0); Mean Corpuscular Hemoglobin 31.8 pg (27.0-31.0); Mean Corpuscular Volume 94.5 fL (78.0-98.0); Mean Platelet Volume 9.2 fL (7.4-10.4); Platelet Count 178 10x3/uL (130-400); RBC Distribution Width 12.6 % (11.5-14.5); Red Blood Cell (RBC) Count 4.75 mill/uL (4.70-6.10)
[2024-06-05] MEDS ORDERED: Dexamethasone 20 MG/5 ML VIAL ONE (08:25)
[2024-06-05] MEDS ORDERED: fentaNYL 50 mcg/mL 1 mL Vial ONE (08:30)
[2024-06-05] MEDS ORDERED: HYDROcodone/Acetaminophen 5/325 mg Tablet ONE (10:24)
[2024-06-05] MEDS ORDERED: Sodium Chloride 0.9% 100 ML ONE (10:25)
== END 2024-06-05 12:37 | disposition home or self-care (01) ==
LOC: SDC 05:49
PROVIDERS: ATTEND Neurological Surgery
PROC: 01N10ZZ Release Cervical Nerve, Open Approach (ICD-10-PCS; principal; 2024-06-05)
DX: M54.12 Radiculopathy, cervical region (principal); I10 Essential (primary) hypertension; I25.10 Atherosclerotic heart disease of native coronary artery without angina pectoris; E78.5 Hyperlipidemia, unspecified; E03.9 Hypothyroidism, unspecified; F41.9 Anxiety disorder, unspecified; F32.A Depression, unspecified; G47.30 Sleep apnea, unspecified; Z88.8 Allergy status to other drugs, medicaments and biological substances; Z79.82 Long term (current) use of aspirin; Z79.899 Other long term (current) drug therapy
CPT/HCPCS: 80048; 85025; 93005; 93010; J0171; J0665; J2250; J2405; J2704; J3010